=== PATIENT | male | born 2000 | race Caucasian/White ===

== ENCOUNTER 2022-11-04 10:29 | Emergency (ER) | payer OTHER, SELFPAY ==
[2022-11-04 10:41] VITALS: BP 155/81; PULSE 71; RESP 16; TEMP 36.6; O2SAT 98; BMI 44.2
[2022-11-04 10:54] LABS: Appearance Urine Clear (Clear); Bilirubin Urine Negative (Negative); Blood Urine Negative (Negative); Color Urine Yellow (Yellow); Glucose Urine Negative (Negative); Ketones Urine Negative (Negative); Leukocyte Esterase Urine Negative (Negative); Nitrite Urine Negative (Negative); Protein Urine Negative (Negative); Specific Gravity Urine >= 1.030 (1.000-1.030); Urobilinogen Urine 0.2 (0.2-1.0)
--- NOTE | 2022-11-04 11:09 | ED.MALEGU ---
HPI - Male Genitourinary General Chief complaint: Urogenital Problems, Male Stated complaint: Blood in urine Time Seen by Provider: 11/04/22 11:01 History of Present Illness HPI Narrative: This 22-year-old male comes in reporting hematuria. He states that this occurred today after having a weightlifting session where he did some very heavy squat lifting. 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 He states that he had some reddish tinged urine with some discomfort when voiding urine then there was more jie red blood at the end of the flow of the urine. He states that he is healthy otherwise. He does not report any fevers. He is not on any blood thinners. Related Data Home Medications Medication Instructions Recorded Confirmed divalproex 500 mg tablet,delayed 500 mg PO Q12H 11/04/22 11/04/22 release (Depakote) Allergies Allergy/AdvReac Type Severity Reaction Status Date / Time penicillin G Allergy Verified 11/04/22 10:44 Review of Systems Status of ROS: Reports: 10 or more systems reviewed and unremarkable except as noted in History and below Narrative: Constitutional: No fevers, no weight gain or loss. Eyes: No discharge. No vision changes. HENT: No congestion, no sore throat, no ear pain. Cardiovascular: No chest pain, no palpitations. Respiratory: No shortness of breath, no wheezes, no cough. Gastrointestinal: No abdominal pain, no vomiting, no diarrhea. Genitourinary: Hematuria with discomfort with passing urine. Musculoskeletal: Normal range of motion. Skin: No rashes, no pruritis. Neurological: No dizziness, weakness, sensory change, speech change. Endo/Heme/Allergies: No bruising or bleeding. No polydipsia. Pysch: no suicidality, no anxiety, no insomnia. All other systems reviewed and are negative. Exam Narrative: Exam Narrative: Constitutional: Well-developed, well-nourished, no acute distress. HEENT: Normocephalic, atraumatic. Neck: Normal range of motion. Nontender. Supple. Heart: Regular. No murmurs. Normal rate. Intact distal pulses. Lungs: Clear to auscultation. No chest discomfort. No wheezes, rhonchi, or rales. Abdomen: Normal bowel sounds. Nontender. No rebound tenderness. Genitalia: Deferred. Back: No midline tenderness. Normal range of motion. No flank tenderness. Extremities: Normal range of motion. No injury. Skin: Intact. No rash. Warm. No erythema or pallor. Neurologic: No altered sensation. No weakness. Alert and oriented. Psychiatric: No suicidality. No anxiety or depression. No insomnia. Nursing notes and vitals signs are reviewed. Const: Vital Signs, click to edit/add: Vital Signs - 24 hr 11/04/22 10:41 Temperature 97.8 F Pulse Rate [Left P ulse Oximeter] 71 Respiratory Rate 16 Blood Pressure [Le ft Upper Arm] 155/81 H Pulse Oximetry 98 Course Vital Signs Vital signs: Initial Vital Signs Temperature 97.8 F 11/04/22 10:41 Temperature Source Temporal Artery Scan 11/04/22 10:41 Pulse Rate 71 11/04/22 10:41 Pulse Rhythm 11/04/22 10:41 Pulse Strength 3+ Normal 11/04/22 10:41 Respiratory Rate 16 11/04/22 10:41 Blood Pressure 155/81 H 11/04/22 10:41 Blood Pressure Mean 105 11/04/22 10:41 Blood Pressure Position Sitting 11/04/22 10:41 Pulse Oximetry 98 11/04/22 10:41 Vital Signs Temperature 97.8 F 11/04/22 10:41 Pulse Rate 71 11/04/22 10:41 Respiratory Rate 16 11/04/22 10:41 Blood Pressure 155/81 H 11/04/22 10:41 Pulse Oximetry 98 11/04/22 10:41 Temperature 97.8 F 11/04/22 10:41 Pulse Rate 71 11/04/22 10:41 Respiratory Rate 16 11/04/22 10:41 Blood Pressure 155/81 H 11/04/22 10:41 Pulse Oximetry 98 11/04/22 10:41 MDM - Male Genitourinary MDM Narrative Medical decision making narrative: This patient comes in reporting some blood in urine after a very heavy weightlifting workout. He denies any other symptoms. Urinalysis here shows normal results without sign of hematuria or infection. The patient is not having any other symptoms. It seems most likely that his hematuria was transient and related to extreme exertional activity in the weight lifting room. I advised him to observe for recurrence of symptoms and return if this happens. Also if there are other symptoms including fever that may indicate another process going on. The patient is agreeable with this plan. Lab Data Labs: Lab Results 11/04/22 Range/Units 10:44 Urine Color Yellow (Yellow) Urine Appearance Clear (Clear) Urine pH 6.0 (5.0-8.5) Ur Specific Gill >= 1.030 (1.000-1.030) Urine Protein Negative (Negative) Urine Glucose (UA) Negative (Negative) Urine Ketones Negative (Negative) Urine Blood Negative (Negative) Urine Nitrite Negative (Negative) Urine Bilirubin Negative (Negative) Urine Urobilinogen 0.2 (0.2-1.0) Ur Leukocyte Esterase Negative (Negative) Discharge Plan Discharge Clinical Impression: Hematuria Patient Disposition: Home, Self-Care Condition: Improved Additional Instructions: Continue current plans. Follow up with MD or return if recurrent or worsening symptoms happen. Prescriptions: No Action divalproex [Depakote] 500 mg tablet,delayed release (DR/EC) 500 mg PO Q12H Follow Up/Referrals: Provider,Not a Local [Primary Care Provider] - Stand Alone Forms: [employer] Info Instructions
== END 2022-11-04 13:22 | disposition home or self-care (01) ==
PROVIDERS: Emergency Provider Emergency Medicine Emergency Medical Services
DX: R31.9 Hematuria, unspecified (principal)
CPT/HCPCS: 81003; 99282; 99283; 99284